=== PATIENT | female | born 1985 ===

== ENCOUNTER 2020-07-16 15:59 | Outpatient (REF) | payer OTHER, SELFPAY | END 2020-07-16 16:00 | disposition home or self-care (01) | LOC: NCHCN 15:59 | PROVIDERS: Visit Provider Physician Assistant | DX: Z20.822 Contact with and (suspected) exposure to COVID-19 (principal) | CPT/HCPCS: U0003 ==

== ENCOUNTER 2021-11-09 18:53 | Outpatient (REF) | payer OTHER, SELFPAY ==
[2021-11-09 20:14] LABS: Hemoglobin A1C 6.1 % (<5.7)
[2021-11-09 20:23] LABS: ALT 16 U/L (14-59); AST 15 U/L (15-37); Albumin 3.5 g/dL (3.4-5.0); Alkaline Phosphatase 66 U/L (46-116); BUN 14 mg/dL (7-18); Bilirubin, Total 0.4 mg/dL (0.2-1.0); CREATININE 0.6 mg/dL (0.55-1.02); Calcium 8.4 mg/dL (8.5-10.1); Calculated LDL 115 mg/dL (<100); Chloride 104 mmol/L (98-107); Cholesterol 184 mg/dL (<200); Glucose 112 mg/dL (74-106); HDL Cholesterol 55 mg/dL (40-60); Potassium 3.8 mmol/L (3.5-5.1); Sodium 139 mmol/L (136-145); TSH 1.06 uIU/mL (0.36-3.74); Total Protein 7.7 g/dL (6.4-8.2); Triglyceride 73 mg/dL (<150)
[2021-11-10 17:20] LABS: Albumin ug/mg Crea 4 (<30); Creatinine, Ur 234.5 mg/dL (See Note)
== END 2021-11-09 18:54 | disposition home or self-care (01) ==
LOC: NCHCN 18:53
PROVIDERS: PCP Nurse Practitioner Family; Visit Provider Nurse Practitioner Family
DX: F41.9 Anxiety disorder, unspecified (principal); E66.01 Morbid (severe) obesity due to excess calories; Z13.220 Encounter for screening for lipoid disorders; Z13.1 Encounter for screening for diabetes mellitus; Q63.1 Lobulated, fused and horseshoe kidney
CPT/HCPCS: 80053; 80061; 82043; 82570; 83036; 84443

== ENCOUNTER 2022-03-23 09:45 | Outpatient (REF) | payer OTHER, SELFPAY ==
[2022-03-23 20:12] LABS: Abs Immature Grans 0.19 10^3/uL (0.0-0.06); Absolute Basophil Count 0.07 10^3/uL (0.0-0.2); Absolute Eosinophil Count 0.08 10^3/uL (0.0-0.7); Absolute Lymphocyte Count 1.91 10^3/uL (1.2-3.4); Absolute Monocyte Count 0.37 10^3/uL (0.1-0.8); Absolute Neutrophil Count 4.43 10^3/uL (1.2-6.7); Eosinophils % 1.1; HCT 34.6 % (36.0-46.0); HGB 10.6 g/dL (11.2-15.7); Immature Grans % 2.7; Lymphocytes % 27.1; MCH 27.6 pg (27.0-33.0); MCHC 30.6 % (32.0-36.0); MCV 90 fL (80-95); MPV 10.4 fL (8.0-11.0); Monocytes % 5.2; Neutrophils % 62.9; Platelet Count 509 10^3/uL (130-400); RBC 3.84 10^6/uL (3.93-5.22); RDW 13.9 % (11.7-14.6); RDW-SD 45.9 fL; WBC 7.05 10^3/uL (4.4-10.8)
[2022-03-23 20:32] LABS: ALT 39 U/L (14-59); AST 32 U/L (15-37); Albumin 3.4 g/dL (3.4-5.0); Alkaline Phosphatase 178 U/L (46-116); Anion Gap 9.7 mmol/L (3-11); BUN 16 mg/dL (7-18); Bilirubin, Total 0.3 mg/dL (0.2-1.0); CO2 24.3 mmol/L (21.0-32.0); CREATININE 0.9 mg/dL (0.55-1.02); Chloride 103 mmol/L (98-107); Estimated GFR 83.92 (mL/min/1.73m2); Glucose 108 mg/dL (74-106); Potassium 4.6 mmol/L (3.5-5.1); Sodium 137 mmol/L (136-145); Total Protein 9.4 g/dL (6.4-8.2)
[2022-03-23 20:52] LABS: C Diff PCR Negative (Negative)
== END 2022-03-23 09:46 | disposition home or self-care (01) ==
LOC: NCHCN 09:45
PROVIDERS: PCP Nurse Practitioner Family; Visit Provider Nurse Practitioner Family
DX: N12 Tubulo-interstitial nephritis, not specified as acute or chronic (principal); N17.9 Acute kidney failure, unspecified; D64.9 Anemia, unspecified; R79.89 Other specified abnormal findings of blood chemistry
CPT/HCPCS: 80053; 87493; 85025

== ENCOUNTER 2022-03-29 17:58 | Outpatient (REF) | payer OTHER, SELFPAY ==
[2022-03-29 19:41] LABS: HCT 33.1 % (36.0-46.0); HGB 10.2 g/dL (11.2-15.7); MCH 27.9 pg (27.0-33.0); MCHC 30.8 % (32.0-36.0); MCV 91 fL (80-95); MPV 9.4 fL (8.0-11.0); Platelet Count 657 10^3/uL (130-400); RBC 3.65 10^6/uL (3.93-5.22); RDW 13.3 % (11.7-14.6); RDW-SD 44.5 fL; WBC 7.05 10^3/uL (4.4-10.8)
[2022-03-29 19:56] LABS: ALT 22 U/L (14-59); AST 21 U/L (15-37); Albumin 3.3 g/dL (3.4-5.0); Alkaline Phosphatase 99 U/L (46-116); Anion Gap 6.4 mmol/L (3-11); BUN 14 mg/dL (7-18); Bilirubin, Total 0.3 mg/dL (0.2-1.0); CO2 27.6 mmol/L (21.0-32.0); CREATININE 0.8 mg/dL (0.55-1.02); Calcium 8.9 mg/dL (8.5-10.1); Chloride 107 mmol/L (98-107); Estimated GFR 96.66 (mL/min/1.73m2); GGT 131 U/L (5-55); Glucose 95 mg/dL (74-106); Potassium 4.3 mmol/L (3.5-5.1); Sodium 141 mmol/L (136-145); Total Protein 8.8 g/dL (6.4-8.2)
[2022-03-31 14:19] LABS: Albumin 45.9 % (55.8-66.1); Albumin g/dL 3.8 g/dL (3.6-5.2); Comment (See Note); Total Protein 8.2 g/dL (6.3-8.2)
[2022-03-31 14:49] LABS: Immunotyping, Serum (See Note)
== END 2022-03-29 17:59 | disposition home or self-care (01) ==
LOC: NCHCN 17:58
PROVIDERS: PCP Nurse Practitioner Family; Visit Provider Nurse Practitioner Family
DX: R74.8 Abnormal levels of other serum enzymes (principal); D64.9 Anemia, unspecified; R79.89 Other specified abnormal findings of blood chemistry
CPT/HCPCS: 80053; 85027; 82977; 84165; 86320

== ENCOUNTER 2022-06-02 18:01 | Outpatient (REF) | payer OTHER, SELFPAY ==
[2022-06-02 19:21] LABS: Abs Immature Grans 0.06 10^3/uL (0.0-0.06); Absolute Basophil Count 0.06 10^3/uL (0.0-0.2); Absolute Eosinophil Count 0.17 10^3/uL (0.0-0.7); Absolute Lymphocyte Count 2.44 10^3/uL (1.2-3.4); Absolute Monocyte Count 0.38 10^3/uL (0.1-0.8); Absolute Neutrophil Count 5.64 10^3/uL (1.2-6.7); Basophils % 0.7; Eosinophils % 1.9; HGB 10.8 g/dL (11.2-15.7); Immature Grans % 0.7; Lymphocytes % 27.9; MCH 28.8 pg (27.0-33.0); MCHC 32.7 % (32.0-36.0); MCV 88 fL (80-95); MPV 10.2 fL (8.0-11.0); Monocytes % 4.3; Neutrophils % 64.5; Platelet Count 334 10^3/uL (130-400); RBC 3.75 10^6/uL (3.93-5.22); RDW 13.4 % (11.7-14.6); RDW-SD 42.7 fL; WBC 8.75 10^3/uL (4.4-10.8)
== END 2022-06-02 18:02 | disposition home or self-care (01) ==
LOC: NCHCN 18:01
PROVIDERS: PCP Nurse Practitioner Family; Visit Provider Nurse Practitioner Family
DX: D64.9 Anemia, unspecified (principal)
CPT/HCPCS: 85025

== ENCOUNTER 2022-07-21 08:58 | Outpatient (REF) | payer OTHER, SELFPAY ==
[2022-07-21 18:36] LABS: Abs Immature Grans 0.03 10^3/uL (0.0-0.06); Absolute Basophil Count 0.04 10^3/uL (0.0-0.2); Absolute Lymphocyte Count 1.98 10^3/uL (1.2-3.4); Absolute Monocyte Count 0.25 10^3/uL (0.1-0.8); Absolute Neutrophil Count 3.79 10^3/uL (1.2-6.7); Basophils % 0.6; Eosinophils % 1.6; HCT 36.6 % (36.0-46.0); HGB 11.6 g/dL (11.2-15.7); Immature Grans % 0.5; MCH 27.6 pg (27.0-33.0); MCHC 31.7 % (32.0-36.0); MCV 87 fL (80-95); MPV 9.8 fL (8.0-11.0); Neutrophils % 61.3; Platelet Count 324 10^3/uL (130-400); RBC 4.21 10^6/uL (3.93-5.22); RDW 12.2 % (11.7-14.6); RDW-SD 39.2 fL; WBC 6.19 10^3/uL (4.4-10.8)
[2022-07-21 18:55] LABS: Iron 49 ug/dL (50-170); Total Iron Binding Capacity 373 ug/dL (250-450); Transferrin Sat 13 % (15-50)
[2022-07-21 19:14] LABS: Vitamin D 25 Total 11.6 ng/mL (30-100)
[2022-07-21 19:15] LABS: ALT 23 U/L (14-59); AST 16 U/L (15-37); Albumin 3.6 g/dL (3.4-5.0); Alkaline Phosphatase 87 U/L (46-116); Anion Gap 5.5 mmol/L (3-11); BUN 12 mg/dL (7-18); Bilirubin, Total 0.2 mg/dL (0.2-1.0); CO2 29.5 mmol/L (21.0-32.0); CREATININE 0.9 mg/dL (0.55-1.02); Calcium 8.6 mg/dL (8.5-10.1); Calculated LDL 145 mg/dL (<100); Chloride 104 mmol/L (98-107); Cholesterol 234 mg/dL (<200); Estimated GFR 83.92 (mL/min/1.73m2); Folate 8.2 ng/mL (8.6-20.0); Glucose 118 mg/dL (74-106); HDL Cholesterol 53 mg/dL (40-60); Potassium 3.8 mmol/L (3.5-5.1); Sodium 139 mmol/L (136-145); TSH (W/Ref FT4) 2.29 uIU/mL (0.36-3.74); Triglyceride 183 mg/dL (<150); Vitamin B12 376 pg/mL (193-986)
== END 2022-07-21 08:59 | disposition home or self-care (01) ==
LOC: NCHCN 08:58
PROVIDERS: PCP Nurse Practitioner Family; Visit Provider Nurse Practitioner Family
DX: Z13.220 Encounter for screening for lipoid disorders (principal); N12 Tubulo-interstitial nephritis, not specified as acute or chronic; D64.9 Anemia, unspecified; E66.01 Morbid (severe) obesity due to excess calories; R63.5 Abnormal weight gain
CPT/HCPCS: 80053; 80061; 82306; 82607; 82746; 83540; 83550; 84443; 85025

== ENCOUNTER 2023-02-15 11:43 | Outpatient (REF) | payer BC, SELFPAY ==
[2023-02-15 19:13] LABS: HCT 37.5 % (36.0-46.0); HGB 11.9 g/dL (11.2-15.7); MCH 27.4 pg (27.0-33.0); MCHC 31.7 % (32.0-36.0); MCV 86 fL (80-95); Platelet Count 331 10^3/uL (130-400); RBC 4.34 10^6/uL (3.93-5.22); RDW 12.8 % (11.7-14.6); RDW-SD 40.2 fL; WBC 8.05 10^3/uL (4.4-10.8)
[2023-02-15 20:02] LABS: Vitamin D 25 Total 19.8 ng/mL (30-100)
[2023-02-15 20:07] LABS: ALT 25 U/L (14-59); AST 20 U/L (15-37); Albumin 3.5 g/dL (3.4-5.0); Alkaline Phosphatase 79 U/L (46-116); Anion Gap 6.8 mmol/L (3-11); BUN 15 mg/dL (7-18); Bilirubin, Total 0.2 mg/dL (0.2-1.0); CO2 25.2 mmol/L (21.0-32.0); CREATININE 0.7 mg/dL (0.55-1.02); Calcium 8.6 mg/dL (8.5-10.1); Calculated LDL 142 mg/dL (<100); Chloride 104 mmol/L (98-107); Cholesterol 216 mg/dL (<200); Estimated GFR 113.46 (mL/min/1.73m2); Glucose 115 mg/dL (74-106); HDL Cholesterol 60 mg/dL (40-60); Potassium 4.1 mmol/L (3.5-5.1); Sodium 136 mmol/L (136-145); Total Protein 7.8 g/dL (6.4-8.2); Triglyceride 71 mg/dL (<150); Vitamin B12 363 pg/mL (193-986)
== END 2023-02-15 11:44 | disposition home or self-care (01) ==
LOC: NCHCN 11:43
PROVIDERS: PCP Nurse Practitioner Family; Visit Provider Nurse Practitioner Family
DX: E55.9 Vitamin D deficiency, unspecified (principal); D64.9 Anemia, unspecified; R73.03 Prediabetes; E78.5 Hyperlipidemia, unspecified
CPT/HCPCS: 80053; 80061; 82306; 85027; 82607

== ENCOUNTER 2023-05-15 11:42 | Outpatient (REF) | payer BC, SELFPAY ==
--- NOTE | 2023-05-15 10:15 | PAPFT_PTH ---
PATIENT: Paulina Samuel LOC: [facility]#:[id number] AGE/SX: 38/F ROOM: RE05/15/[address]: Calos Kirby : 1985 BED: DIS: 05/15/2023 SPEC #: [id number] RECD: 05/16/23 12:56 STATUS: GERARDO RELies #: [id number] LEIA: 05/15/23 10:[address]: Erin Kirbylaide DEPT: [facility] Cytology RECD BY: Emelina Mendieta Tissues: 1 - CX/ENDOCX FOR PAP SMEARS Procedures: PAP THIN PREP/UVM Screening HPV DNA PROBE Comments: [id number]
== END 2023-05-15 11:43 | disposition home or self-care (01) ==
LOC: NCHCN 11:42
PROVIDERS: PCP Nurse Practitioner Family; Visit Provider Nurse Practitioner Family
DX: Z12.4 Encounter for screening for malignant neoplasm of cervix (principal); Z01.419 Encounter for gynecological examination (general) (routine) without abnormal findings
CPT/HCPCS: 88142; 87624

== ENCOUNTER 2023-06-21 11:09 | Outpatient (REF) | payer BC, SELFPAY ==
[2023-06-21 20:43] LABS: ALT 18 U/L (14-59); AST 16 U/L (15-37); Albumin 3.3 g/dL (3.4-5.0); Alkaline Phosphatase 82 U/L (46-116); Anion Gap 10.9 mmol/L (3-11); BUN 19 mg/dL (7-18); Bilirubin, Total 0.2 mg/dL (0.2-1.0); CO2 25.1 mmol/L (21.0-32.0); CREATININE 0.8 mg/dL (0.55-1.02); Calcium 8.9 mg/dL (8.5-10.1); Chloride 101 mmol/L (98-107); Estimated GFR 96.06 (mL/min/1.73m2); Glucose 137 mg/dL (74-106); Potassium 4.4 mmol/L (3.5-5.1); Sodium 137 mmol/L (136-145); Total Protein 7.8 g/dL (6.4-8.2)
== END 2023-06-21 11:10 | disposition home or self-care (01) ==
LOC: NCHCN 11:09
PROVIDERS: PCP Nurse Practitioner Family; Visit Provider Nurse Practitioner Family
DX: F31.9 Bipolar disorder, unspecified (principal); Z79.899 Other long term (current) drug therapy
CPT/HCPCS: 80053

== ENCOUNTER 2023-06-23 15:12 | Outpatient (REF) | payer BC, SELFPAY ==
[2023-06-23 19:37] LABS: Bilirubin Negative (Negative); Blood Negative (Negative); Clarity Turbid (Clear); Glucose Negative (Negative); Ketones Negative (Negative); Leukocyte Esterase Small (Negative); Nitrite Negative (Negative); Specific Gravity 1.025 (1.005-1.025); Urobilinogen 0.2 mg/dL (Up to 0.2)
[2023-06-23 19:42] LABS: Bacteria Many HPF (Negative); Crystals Negative HPF (Negative); Epithelial Cells Few HPF (Negative); Mucus Negative (Negative); RBC Negative HPF (0-2); WBC 20-50 HPF (0-5)
[2023-06-23 19:43] LABS: C & S Indicated? Yes; Casts Negative LPF (Negative)
== END 2023-06-23 15:13 | disposition home or self-care (01) ==
LOC: NCHCN 15:12
PROVIDERS: PCP Nurse Practitioner Family; Visit Provider Nurse Practitioner Family
DX: R10.9 Unspecified abdominal pain (principal); R82.998 Other abnormal findings in urine
CPT/HCPCS: 87077; 81003; 81015; 87086; 87186

== ENCOUNTER 2023-07-19 13:41 | Outpatient (REF) | payer BC, SELFPAY ==
[2023-07-19 20:09] LABS: Bilirubin Negative (Negative); Blood Negative (Negative); Clarity Clear (Clear); Glucose Negative (Negative); Ketones Negative (Negative); Leukocyte Esterase Small (Negative); Nitrite Negative (Negative); Urobilinogen 0.2 mg/dL (Up to 0.2)
[2023-07-19 20:23] LABS: RBC 0-2 HPF (0-2); WBC 0-2 HPF (0-5)
[2023-07-19 20:24] LABS: Bacteria Rare HPF (Negative); C & S Indicated? No/Sq. Contamination; Casts Negative LPF (Negative); Crystals Negative HPF (Negative); Epithelial Cells Many HPF (Negative); Mucus Negative (Negative)
== END 2023-07-19 13:42 | disposition home or self-care (01) ==
LOC: NCHCN 13:41
PROVIDERS: PCP Nurse Practitioner Family; Visit Provider Nurse Practitioner Family
DX: R10.32 Left lower quadrant pain (principal)
CPT/HCPCS: 81003; 81015

== ENCOUNTER 2023-11-22 09:50 | Outpatient (REF) | payer BC, SELFPAY ==
[2023-11-22 20:11] LABS: Bilirubin Negative (Negative); Blood Negative (Negative); Clarity Cloudy (Clear); Glucose Negative (Negative); Ketones Trace mg/dL (Negative); Leukocyte Esterase Trace (Negative); Nitrite Positive (Negative); Specific Gravity 1.025 (1.005-1.025); Urobilinogen 0.2 mg/dL (Up to 0.2); pH 5.5 (5-8)
[2023-11-22 20:21] LABS: Bacteria Many HPF (Negative); C & S Indicated? Yes; Casts Negative LPF (Negative); Crystals Negative HPF (Negative); Epithelial Cells Few HPF (Negative); Mucus Trace (Negative)
== END 2023-11-22 09:51 | disposition home or self-care (01) ==
LOC: NCHCN 09:50
PROVIDERS: PCP Nurse Practitioner Family; Visit Provider Nurse Practitioner Family
DX: N89.8 Other specified noninflammatory disorders of vagina (principal); R82.998 Other abnormal findings in urine; N39.0 Urinary tract infection, site not specified
CPT/HCPCS: 87077; 81003; 81015; 87086; 87186; 87480; 87510; 87660

== ENCOUNTER 2024-02-19 19:29 | Outpatient (REF) | payer BC, SELFPAY ==
[2024-02-19 19:57] LABS: Bilirubin Negative (Negative); Blood Moderate (Negative); Clarity Clear (Clear); Glucose Negative (Negative); Ketones Negative (Negative); Leukocyte Esterase Moderate (Negative); Nitrite Negative (Negative); Specific Gravity 1.025 (1.005-1.025)
[2024-02-19 20:14] LABS: Bacteria Moderate HPF (Negative); C & S Indicated? No/Sq. Contamination; Casts Negative LPF (Negative); Crystals Negative HPF (Negative); Epithelial Cells Many HPF (Negative); Mucus Negative (Negative)
== END 2024-02-19 19:30 | disposition home or self-care (01) ==
LOC: NCHCN 19:29
PROVIDERS: PCP Nurse Practitioner Family; Visit Provider Nurse Practitioner Family
DX: N89.8 Other specified noninflammatory disorders of vagina (principal); R30.0 Dysuria
CPT/HCPCS: 81003; 81015; 87480; 87510; 87660

== ENCOUNTER 2024-02-23 08:41 | Outpatient (REF) | payer BC, SELFPAY ==
[2024-02-23 19:21] LABS: ALT 20 U/L (14-59); AST 16 U/L (15-37); Albumin 3.5 g/dL (3.4-5.0); Alkaline Phosphatase 84 U/L (46-116); Anion Gap 7.2 mmol/L (3-11); BUN 15 mg/dL (7-18); Bilirubin, Total 0.23 mg/dL (0.2-1.0); CO2 27.8 mmol/L (21.0-32.0); CREATININE 0.9 mg/dL (0.55-1.02); Calcium 8.9 mg/dL (8.5-10.1); Calculated LDL 139 mg/dL (<100); Chloride 106 mmol/L (98-107); Cholesterol 229 mg/dL (<200); Glucose 129 mg/dL (74-106); HDL Cholesterol 63 mg/dL (40-60); Potassium 4.3 mmol/L (3.5-5.1); Sodium 141 mmol/L (136-145); Total Protein 7.5 g/dL (6.4-8.2); Triglyceride 135 mg/dL (<150)
== END 2024-02-23 08:42 | disposition home or self-care (01) ==
LOC: NCHCN 08:41
PROVIDERS: PCP Nurse Practitioner Family; Visit Provider Nurse Practitioner Family
DX: E78.5 Hyperlipidemia, unspecified (principal); R73.03 Prediabetes
CPT/HCPCS: 80053; 80061; 83036

== ENCOUNTER 2024-05-30 12:04 | Outpatient (REF) | payer BC, SELFPAY ==
[2024-05-30 19:20] LABS: Abs Immature Grans 0.08 10^3/uL (0.0-0.06); Absolute Basophil Count 0.07 10^3/uL (0.0-0.2); Absolute Eosinophil Count 0.23 10^3/uL (0.0-0.7); Absolute Lymphocyte Count 2.33 10^3/uL (1.2-3.4); Absolute Monocyte Count 0.37 10^3/uL (0.1-0.8); Absolute Neutrophil Count 6.33 10^3/uL (1.2-6.7); Basophils % 0.7 %; Eosinophils % 2.4 %; HCT 36.7 % (36.0-46.0); HGB 11.9 g/dL (11.2-15.7); Immature Grans % 0.9 %; Lymphocytes % 24.8 %; MCHC 32.4 % (32.0-36.0); MCV 90 fL (80-95); MPV 9.9 fL (8.0-11.0); Monocytes % 3.9 %; Neutrophils % 67.3 %; Platelet Count 357 10^3/uL (130-400); RDW 13.7 % (11.7-14.6); RDW-SD 44.6 fL; WBC 9.41 10^3/uL (4.4-10.8)
[2024-05-30 20:32] LABS: ALT 46 U/L (14-59); AST 33 U/L (15-37); Albumin 3.8 g/dL (3.4-5.0); Alkaline Phosphatase 84 U/L (46-116); Anion Gap 8.1 mmol/L (3-11); BUN 20 mg/dL (7-18); Bilirubin, Total 0.4 mg/dL (0.2-1.0); CO2 25.9 mmol/L (21.0-32.0); CREATININE 1.1 mg/dL (0.55-1.02); Calcium 9.4 mg/dL (8.5-10.1); Chloride 105 mmol/L (98-107); Estimated GFR 65.14 (mL/min/1.73m2); Glucose 118 mg/dL (74-106); Potassium 4.7 mmol/L (3.5-5.1); Sodium 139 mmol/L (136-145); Total Protein 8.3 g/dL (6.4-8.2)
== END 2024-05-30 12:05 | disposition home or self-care (01) ==
LOC: NCHCN 12:04
PROVIDERS: Registered Nurse; PCP Nurse Practitioner Family; Visit Provider Nurse Practitioner Family
DX: F31.32 Bipolar disorder, current episode depressed, moderate (principal); F43.12 Post-traumatic stress disorder, chronic; Q63.1 Lobulated, fused and horseshoe kidney; Z51.81 Encounter for therapeutic drug level monitoring
CPT/HCPCS: 80053; 85025

== ENCOUNTER 2024-12-10 03:40 | Outpatient (CLI) | payer BC, SELFPAY ==
--- NOTE | 2024-12-10 | DI.MAMMO_ITS ---
Exam(s) MAMMO SCREENING EXAM: MAMMO SCREENING CLINICAL HISTORY: SCREENING MAMMO Z12.31. TECHNIQUE: Bilateral full field digital CC and MLO mammographic images were obtained with 3D tomosynthesis and utilizing computer aided detection (CAD). COMPARISON: . This is a baseline mammogram on this 39-year-old FINDINGS: There are no CAD designations In the right breast is a well-defined lobulated noncalcified nodule measuring 1.2 by 1.0 cm located 2 cm in from the nipple on the MLO view. Further imaging recommended. In the left breast there are multiple small nodules located approximately 8 cm in the nipple on the MLO view, toward the upper outer quadrant. Additional imaging recommended. Also in the left breast is another oval noncalcified nodule measuring 7 x 6 mm located 5 cm in from the nipple on the cc view. There are no malignant-appearing microcalcification groups in either breast. There is no significant architectural distortion nor skin thickening-retraction. IMPRESSION: Bilateral nodules. Bilateral spot compression views and complete bilateral breast ultrasound recommended. BI-RADS Category 0 - Incomplete: Need additional imaging evaluation Breast Density - Category B - There are scattered areas of fibroglandular density. Breast density Category C or D implies that the patient has dense breast tissue. Dense breast tissue can make it harder to find cancer on a mammogram. Dense breast tissue is also associated with an increased risk of breast cancer. This information about the result of the mammogram report was provided to the patient to raise their awareness. Use this report when you speak with the patient about their risks for breast cancer, which includes their family history. At that time, you may recommend additional screening tests (Ultrasound or MRI) as these tests may add significant information. A negative radiographic report should not delay biopsy if a dominant or clinically suspicious mass is present. Up to ten percent of cancers are not identified on mammography. A negative report may reinforce clinical impression. Adenosis and dense breasts may obscure an underlying neoplasm. False positive reports average 6 to 10%. Patient will receive a letter notifying them of these results.
== END 2024-12-10 04:00 ==
LOC: DI 03:40
PROVIDERS: PCP Nurse Practitioner Family; Visit Provider Nurse Practitioner Family
DX: Z12.31 Encounter for screening mammogram for malignant neoplasm of breast (principal); N63.41 Unspecified lump in right breast, subareolar
CPT/HCPCS: 77063; 77067

== ENCOUNTER 2024-12-23 03:31 | Outpatient (CLI) | payer BC, SELFPAY ==
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
== END 2024-12-23 03:51 ==
PROVIDERS: PCP Nurse Practitioner Family; Visit Provider Nurse Practitioner Family
DX: Z12.31 Encounter for screening mammogram for malignant neoplasm of breast (principal); R92.8 Other abnormal and inconclusive findings on diagnostic imaging of breast
CPT/HCPCS: 76642; 77063; 77067

== ENCOUNTER 2025-01-22 09:32 | Outpatient (REF) | payer BC, SELFPAY ==
[2025-01-22 21:46] LABS: Abs Immature Grans 0.04 10^3/uL (0.0-0.06); HCT 37.4 % (36.0-46.0); HGB 12.0 g/dL (11.2-15.7); Immature Grans % 0.6 %; MCH 28.7 pg (27.0-33.0); MCHC 32.1 % (32.0-36.0); MCV 90 fL (80-95); MPV 10.7 fL (8.0-11.0); Platelet Count 172 10^3/uL (130-400); RBC 4.18 10^6/uL (3.93-5.22); RDW 13.7 % (11.7-14.6); RDW-SD 45.1 fL; WBC 7.17 10^3/uL (4.4-10.8)
== END 2025-01-22 09:33 | disposition home or self-care (01) ==
LOC: NCHCN 09:32
PROVIDERS: PCP Nurse Practitioner Family; Visit Provider Nurse Practitioner Family
DX: D69.6 Thrombocytopenia, unspecified (principal)
CPT/HCPCS: 85025